=== PATIENT | male | born 1985 | race Caucasian/White ===

== ENCOUNTER → 2016-12-15 | Outpatient (CLI) | payer OTHER ==
[~2016-12-15] MED LIST: CARISOPRODOL 3350 MG PO; DICLOFENAC SODI25 MG PO; HYDROCODON-ACE1 EAC7 PO; ROBAXIN 750 MG750 M1 PO; TRAMADOL 50 MG50 MG PO
== END ==
LOC: MRI 08:17
DX: M51.47 Schmorl's nodes, lumbosacral region (principal); M51.36 Other intervertebral disc degeneration, lumbar region; M54.5 Low back pain